=== PATIENT | female | born 1970 ===

== ENCOUNTER 2022-02-02 08:32 | Inpatient (IN) | payer BC ==
[2022-02-02] MEDS ORDERED: oxyCODONE 5 MG Tab PO PRN (09:34)
[2022-02-02] MEDS ORDERED: Ondansetron 4 MG/2 ML SDV IVPUSH PRN (09:34)
[2022-02-02] MEDS ORDERED: Docusate Sodium 100 MG Cap PO PRN (09:34)
[2022-02-02 10:22] LABS: ANION GAP 15.9 mEq/L (7-13); CHLORIDE,CL 106 mmol/L (98-107); SODIUM,NA 142 mmol/L (136-145)
[2022-02-02] MEDS: Acetaminophen 325 MG Tab PO PRN ×2 (10:30→22:06)
[2022-02-02] MEDS ORDERED: DAPTOmycin 600 MG in Sodium Chloride 0.9% 50 ML IV SCH (12:45)
[2022-02-02] MEDS: Potassium Chloride 10 MEQ Tab.ER PO SCH (16:35)
[2022-02-02] MEDS: Furosemide 20 MG Tab PO SCH (16:36)
[2022-02-02] MEDS: Heparin Sodium 5,000 Units/ML Vial SUBCUT SCH ×2 (16:36→22:06)
[2022-02-02] MEDS: Nafcillin 2 GM in Sodium Chloride 0.9% 100 ML IV SCH ×3 (16:38→22:25)
[2022-02-03] MEDS: Nafcillin 2 GM in Sodium Chloride 0.9% 100 ML IV SCH ×6 (03:13→21:22)
[2022-02-03] MEDS: Heparin Sodium 5,000 Units/ML Vial SUBCUT SCH ×3 (06:14→21:22)
[2022-02-03 07:11] LABS: ANION GAP 15.4 mEq/L (7-13); CHLORIDE,CL 106 mmol/L (98-107); SODIUM,NA 143 mmol/L (136-145)
[2022-02-03] MEDS: Sodium Chloride 0.9% 10 ML Syringe FLUSH PRN ×3 (09:13→14:27)
[2022-02-03] MEDS: Furosemide 20 MG Tab PO SCH (10:15)
[2022-02-04] MEDS: Nafcillin 2 GM in Sodium Chloride 0.9% 100 ML IV SCH ×4 (01:31→13:44)
[2022-02-04] MEDS: Heparin Sodium 5,000 Units/ML Vial SUBCUT SCH ×2 (06:03→13:43)
[2022-02-04 06:26] LABS: CHLORIDE,CL 106 mmol/L (98-107); SODIUM,NA 146 mmol/L (136-145)
[2022-02-04] MEDS: Potassium Chloride 10 MEQ Tab.ER PO SCH ×2 (08:17→08:19)
[2022-02-04] MEDS: Furosemide 20 MG Tab PO SCH (08:20)
[2022-02-04] MEDS: Sodium Chloride 0.9% 10 ML Syringe FLUSH PRN (10:02)
== END 2022-02-04 13:45 | disposition home or self-care (01) | DRG 383 ==
LOC: DL.MS 08:35
PROVIDERS: ADMIT Internal Medicine; ATTEND Internal Medicine
PROC: 8E0ZXY6 Isolation (ICD-10-PCS; principal; 2022-02-02)
DX: L03.116 Cellulitis of left lower limb (principal); U07.1 COVID-19; I89.0 Lymphedema, not elsewhere classified; E66.01 Morbid (severe) obesity due to excess calories; K21.9 Gastro-esophageal reflux disease without esophagitis; Z68.44 Body mass index [BMI] 60.0-69.9, adult
CPT/HCPCS: 36415; 80048; 81001; 83605; 85025; 85651; 87040; 87070; 87086; 87205; 93970; 99222; 99232; 99238; A9270-GY; J1644; J3490; U0002

== ENCOUNTER 2023-12-20 12:52 | Emergency (ER) | payer BC ==
[2023-12-20 15:17] LABS: ANION GAP 9.1 mEq/L (7-13); BLOOD UREA NITROGEN,BUN 17 mg/dL (7-18); CALCIUM 9.3 mg/dL (8.5-10.1); CARBON DIOXIDE,CO2 34 mmol/L (21-32); CHLORIDE,CL 97 mmol/L (98-107); CREATININE 0.93 mg/dL (0.55-1.02); GLUCOSE RANDOM 134 mg/dL (70-99); SODIUM,NA 138 mmol/L (136-145)
[2023-12-20 15:23] LABS: ESTIMATED GFR 74 mL/min (>=60); POTASSIUM,K 2.1 mmol/L (3.5-5.1)
[2023-12-20] MEDS: Sodium Chloride 0.9% 10 ML Syringe FLUSH PRN (15:56)
[2023-12-20] MEDS: Potassium Chloride 10% 20 MEQ/15 ML Soln 15 ML UD Cup PO STA (15:57)
[2023-12-20 16:06] LABS: BASOPHILS PERCENT AUTO 0.3 % (0.0-1.0); EOSINOPHILS PERCENT AUTO 0.4 % (1.0-3.0); HEMATOCRIT 36.7 % (37.0-47.0); LYMPHOCYTES PERCENT AUTO 15.7 % (20.5-50.1); MEAN CORPUSCULAR HEMOGLOBIN 30.2 pg (27.0-34.0); MEAN CORPUSCULAR HGB CONC 32.7 g/dL (33.0-35.0); MEAN CORPUSCULAR VOLUME 92.4 fL (80-100); MONOCYTES PERCENT AUTO 3.5 % (2-8); NEUTROPHILS PERCENT AUTO 80.1 % (42.2-75.2); PLATELET COUNT,PLT 243 10^3/uL (150-450); RED BLOOD CELL COUNT 3.97 10^6/uL (4.2-5.4); WHITE BLOOD CELL COUNT,WBC 7.3 10^3/uL (5.0-10.0)
[2023-12-20] MEDS: NS with KCl 40mEq 1,000 ML IV SCH (18:26)
[2023-12-20] MEDS: Potassium Chloride 10% 20 MEQ/15 ML Soln 15 ML UD Cup PO ONE (20:33)
[2023-12-20] MEDS: Take Home: Potassium Chloride 10 MEQ Tab, 10 Tab Pack PO ONE (23:22)
== END 2023-12-20 12:55 | disposition home or self-care (01) ==
LOC: DL.ED 12:52
DX: E87.6 Hypokalemia (principal); T50.1X5A Adverse effect of loop [high-ceiling] diuretics, initial encounter; Z79.899 Other long term (current) drug therapy
CPT/HCPCS: 36415; 80048; 83735; 84132; 85025; 93005; 93010; 96365; 96366; 99284; 99285; A9270; J3480; J3490